=== PATIENT | female | born 1945 | race Caucasian/White ===

== ENCOUNTER → 2019-07-22 | Outpatient (CLI) | payer OTHER ==
[~2019-07-22] VITALS: Ht 162.6 cm; Wt 65.3 kg
[~2019-07-22] MED LIST: ANORO ELLIPTA1 EACH INH; BENTYL 10 MG CA10 M1 PO; CALCIUM500 MG PO; CHANTIX0.5 MG PO; FISH OIL 1,0001 EAC9 PO; FLONASE 0.05%50 MCG NARES; LEXAPRO20 MG PO; MYSOLINE50 MG PO; PROAIR HFA8.5 GM INH; SINGULAIR 10 MG10 MG PO; SYNTHROID125 MC1 PO; TRAZODONE HCL100 MG PO; WELLBUTRIN XL300 MG PO
[2019-07-22 13:13] LABS: HEMATOCRIT 41.1 % (37.0-47.0); MCHC 34.2 g/dL (28.0-37.0); MCV 90.7 fL (80.0-100.0); MPV 8.5 fl. (7.2-11.1); RBC 4.53 mil/uL (4.20-5.00); RDW-CV 14.7 % (10.5-14.5); WBC 6.4 thou/uL (4.0-11.0)
[2019-07-22 13:23] LABS: CALCIUM 8.6 mg/dL (8.5-10.1); CREATININE 1.2 mg/dL (0.6-1.3); POTASSIUM 4.6 mmol/L (3.5-5.1)
[2019-07-22 13:28] LABS: ALBUMIN 3.6 g/dL (3.4-5.0); TOTAL BILIRUBIN 0.4 mg/dL (<0.1-1.0); TOTAL PROTEIN 6.5 g/dL (6.4-8.2)
== END | disposition home or self-care (01) ==
LOC: M.SUR 11:22 → M.LAB 12:33 → M.SUR 12:33 → EDSTATUS 13:44
PROVIDERS: Orthopaedic Surgery
DX: M75.100 Unspecified rotator cuff tear or rupture of unspecified shoulder, not specified as traumatic (principal); Z53.8 Procedure and treatment not carried out for other reasons; Z79.899 Other long term (current) drug therapy; Z88.2 Allergy status to sulfonamides; Z91.041 Radiographic dye allergy status; Z88.8 Allergy status to other drugs, medicaments and biological substances